=== PATIENT | female | born 1975 ===

== ENCOUNTER → 2018-07-01 19:44 | Outpatient (REF) | payer OTHER, SELFPAY ==
[2018-07-07 15:41] LABS: Draw Date 3 30619; Draw Date 4 30619; Draw Time 4 MIDNIGHT
== END ==
LOC: LAB 19:44
PROVIDERS: Visit Provider Naturopath
DX: F41.9 Anxiety disorder, unspecified (principal); R53.83 Other fatigue
CPT/HCPCS: 82530